=== PATIENT | male | born 1975 | race African-American/Black ===

== ENCOUNTER 2020-01-12 11:53 | Inpatient (IN) | payer MEDICAID ==
[~2020-01-12] VITALS: Ht 190.5 cm; Wt 123.3 kg
[~2020-01-12 11:53] MED LIST: ALBU6.7H IH; HYDR-1475 PO
[2020-01-12] MEDS ORDERED: HALOPERIDOL 5 MG TABLET PO PRN (13:00)
[2020-01-12] MEDS ORDERED: ZOLPIDEM TARTRATE 10 MG TABLET PO PRN (13:00)
[2020-01-12 16:50] VITALS: BP 131/86
[2020-01-12 17:21] LABS: GLUCOMETER DEV NAME(LOC) BV2S.; GLUCOSE,POINT OF CARE 227 MG/DL (70-110)
[2020-01-12] MEDS ORDERED: GLUCAGON,HUMAN RECOMBINANT 1 MG VIAL IM PRN (17:45)
[2020-01-12] MEDS: INSULIN LISPRO 100 UNITS/ML SQ PRN ×2 (17:54→21:09)
[2020-01-12] MEDS: INSULIN GLARGINE,HUM.REC.ANLOG 100 UNITS/ML SQ SCH (21:10)
[2020-01-12 22:05] LABS: GLUCOMETER DEV NAME(LOC) BV2S.; GLUCOSE,POINT OF CARE 216 MG/DL (70-110)
[2020-01-13 02:08] VITALS: BP 117/74
[2020-01-13 06:10] LABS: GLUCOMETER DEV NAME(LOC) BV2S.; GLUCOSE,POINT OF CARE 190 MG/DL (70-110)
[2020-01-13] MEDS: INSULIN LISPRO 100 UNITS/ML SQ PRN ×4 (06:40→20:23)
[2020-01-13 08:18] VITALS: BP 117/83
[2020-01-13] MEDS: ATORVASTATIN CALCIUM 40 MG TABLET PO SCH (09:00)
[2020-01-13] MEDS: HYDROCHLOROTHIAZIDE 25 MG TABLET PO SCH (09:00)
[2020-01-13] MEDS: NICOTINE 14 MG/24 HOUR PATCH TD SCH (09:00)
[2020-01-13] MEDS: TraMADol HCL 50 MG TABLET PO SCH ×2 (09:00→16:23)
[2020-01-13] MEDS ORDERED: ONDANSETRON HCL 4 MG TABLET PO PRN (09:30)
[2020-01-13] MEDS ORDERED: DOCUSATE SODIUM 100 MG CAPSULE PO PRN (09:30)
[2020-01-13] MEDS ORDERED: ALBUTEROL SULFATE HFA 90 MCG/PUFF 8 GM INHALER IH PRN (09:30)
[2020-01-13] MEDS ORDERED: CloNIDine HCL 0.1 MG TABLET PO PRN (09:30)
[2020-01-13] MEDS ORDERED: MAGNESIUM HYDROXIDE SUSPENSION 30 ML UDCUP PO PRN (09:30)
[2020-01-13] MEDS ORDERED: GuaiFENesin/D-METHORPHAN [SUGAR-FREE] 200-20MG/10 ML SYRUP UDCUP PO PRN (09:30)
[2020-01-13] MEDS ORDERED: ACETAMINOPHEN 325 MG TABLET PO PRN (09:30)
[2020-01-13] MEDS ORDERED: PETROLATUM,WHITE 28 GM JELLY TP PRN (09:30)
[2020-01-13] MEDS ORDERED: MAG HYDROX/AL HYDROX/SIMETH ES 30 ML SUSPENSION UDCUP PO PRN (09:30)
[2020-01-13] MEDS ORDERED: LOPERAMIDE HCL 2 MG CAPSULE PO PRN (09:30)
[2020-01-13] MEDS ORDERED: NICOTINE 14 MG/24 HOUR PATCH TD PRN (09:30)
[2020-01-13] MEDS: BuPROPion HCL XL 150 MG ER TABLET PO SCH (11:16)
[2020-01-13 16:07] LABS: GLUCOMETER DEV NAME(LOC) BV2S.; GLUCOSE,POINT OF CARE 211 MG/DL (70-110)
[2020-01-13] MEDS: ZIPRASIDONE HCL 20 MG CAPSULE PO SCH (16:23)
[2020-01-13 16:37] VITALS: BP 123/90
[2020-01-13 16:58] LABS: GLUCOMETER DEV NAME(LOC) BV2S.; GLUCOSE,POINT OF CARE 202 MG/DL (70-110)
[2020-01-13] MEDS: INSULIN GLARGINE,HUM.REC.ANLOG 100 UNITS/ML SQ SCH (20:20)
[2020-01-13 22:49] LABS: GLUCOMETER DEV NAME(LOC) BV2S.; GLUCOSE,POINT OF CARE 278 MG/DL (70-110)
[2020-01-14 00:43] VITALS: BP 125/75
[2020-01-14 06:17] LABS: GLUCOMETER DEV NAME(LOC) BV2S.; GLUCOSE,POINT OF CARE 178 MG/DL (70-110)
[2020-01-14 06:45] VITALS: BP 122/79
[2020-01-14] MEDS: IBUPROFEN 400 MG TABLET PO PRN (06:50)
[2020-01-14] MEDS: ZIPRASIDONE HCL 20 MG CAPSULE PO SCH ×2 (06:54→17:56)
[2020-01-14] MEDS: INSULIN LISPRO 100 UNITS/ML SQ PRN ×4 (06:56→21:08)
[2020-01-14 08:07] LABS: BASOPHILS % (AUTO) 0.5 % (0.0-2.0); EOSINOPHILS % (AUTO) 2.9 % (1.0-6.0); HEMATOCRIT 42.8 % (41-53); LYMPHOCYTES # (AUTO) 2.6 K/uL (1.0-4.8); LYMPHOCYTES % (AUTO) 39.7 % (22.0-44.0); MEAN CORPUSCULAR HEMOGLOBIN 27.1 pg (26.0-34.0); MEAN CORPUSCULAR HGB CONC 32.7 G/dL (31.0-37.0); MEAN CORPUSCULAR VOLUME 83 fL (80-100); MONOCYTES # (AUTO) 0.7 K/uL (0.1-1.0); MONOCYTES % (AUTO) 10.4 % (2.0-9.0); NEUTROPHILS % (AUTO) 46.5 % (40.0-70.0); PLATELET COUNT (AUTO) 270 K/uL (150-450); RED BLOOD CELL COUNT(AUTO) 5.17 MIL/uL (4.50-5.90); RED CELL DISTRIBUTION WIDTH 13.7 % (11.5-14.5)
[2020-01-14 08:17] VITALS: BP 108/64
[2020-01-14 08:36] LABS: ALANINE AMINOTRANSFERASE 62 U/L (12-78); ALBUMIN 3.4 g/dL (3.4-5.0); ALKALINE PHOSPHATASE 89 U/L (46-116); ANION GAP 8 mmol/L (8-16); ASPARTATE AMINOTRANSFERASE 19 U/L (15-37); BILIRUBIN,TOTAL 0.3 mg/dL (0.1-1.0); CALCIUM, TOTAL 9.4 mg/dL (8.8-10.5); CARBON DIOXIDE 29 mmol/L (22-29); CHLORIDE 100 mmol/L (98-107); CHOLESTEROL 263 mg/dL (131-200); CREATININE 0.96 mg/dL (0.60-1.30); FREE T4 (FREE THYROXINE) 0.78 ng/dL (0.76-1.46); GLOMERULAR FILTR. RATE CALC > 60 mL/min (>60); GLUCOSE,RANDOM 186 mg/dL (70-110); HDL CHOLESTEROL 44 mg/dL (40-60); LDL CHOL (CALC.) 184 mg/dL (0-130); POTASSIUM 4.1 mmol/L (3.5-5.1); SODIUM SERUM 137 mmol/L (136-145); THYROID STIMULATING HORMONE 0.88 uIU/mL (0.36-3.74); TOTAL PROTEIN, SERUM 7.1 g/dL (6.4-8.2); TRIGLYCERIDES 177 mg/dL (15-150); UREA NITROGEN, BLOOD 10 mg/dL (7-18)
[2020-01-14] MEDS: NICOTINE 14 MG/24 HOUR PATCH TD SCH (09:00)
[2020-01-14] MEDS: BuPROPion HCL XL 150 MG ER TABLET PO SCH (09:00)
[2020-01-14] MEDS: ATORVASTATIN CALCIUM 40 MG TABLET PO SCH (09:00)
[2020-01-14] MEDS: HYDROCHLOROTHIAZIDE 25 MG TABLET PO SCH (09:00)
[2020-01-14] MEDS: TraMADol HCL 50 MG TABLET PO SCH ×2 (10:41→17:56)
[2020-01-14 11:48] LABS: GLUCOMETER DEV NAME(LOC) BV2S.; GLUCOSE,POINT OF CARE 223 MG/DL (70-110)
[2020-01-14 16:58] LABS: GLUCOMETER DEV NAME(LOC) BV2S.; GLUCOSE,POINT OF CARE 159 MG/DL (70-110)
[2020-01-14 17:15] VITALS: BP 110/70
[2020-01-14 20:06] LABS: GLUCOMETER DEV NAME(LOC) BV2S.; GLUCOSE,POINT OF CARE 216 MG/DL (70-110)
[2020-01-14] MEDS: INSULIN GLARGINE,HUM.REC.ANLOG 100 UNITS/ML SQ SCH (21:08)
[2020-01-15 01:09] VITALS: BP 127/79
[2020-01-15] MEDS: ZIPRASIDONE HCL 20 MG CAPSULE PO SCH ×2 (06:01→16:09)
[2020-01-15] MEDS: IBUPROFEN 400 MG TABLET PO PRN (06:01)
[2020-01-15 06:07] LABS: GLUCOMETER DEV NAME(LOC) BV2S.; GLUCOSE,POINT OF CARE 170 MG/DL (70-110)
[2020-01-15] MEDS: INSULIN LISPRO 100 UNITS/ML SQ PRN ×4 (06:18→20:53)
[2020-01-15 08:52] VITALS: BP 110/63
[2020-01-15] MEDS: TraMADol HCL 50 MG TABLET PO SCH ×2 (09:14→16:09)
[2020-01-15] MEDS: BuPROPion HCL XL 150 MG ER TABLET PO SCH (09:14)
[2020-01-15] MEDS: ATORVASTATIN CALCIUM 40 MG TABLET PO SCH (09:14)
[2020-01-15] MEDS: NICOTINE 14 MG/24 HOUR PATCH TD SCH (09:14)
[2020-01-15] MEDS: HYDROCHLOROTHIAZIDE 25 MG TABLET PO SCH (09:14)
[2020-01-15 11:32] LABS: GLUCOMETER DEV NAME(LOC) BV2S.; GLUCOSE,POINT OF CARE 201 MG/DL (70-110)
[2020-01-15 16:15] VITALS: BP 132/83
[2020-01-15 17:32] LABS: GLUCOMETER DEV NAME(LOC) BV2S.; GLUCOSE,POINT OF CARE 217 MG/DL (70-110)
[2020-01-15] MEDS: INSULIN GLARGINE,HUM.REC.ANLOG 100 UNITS/ML SQ SCH (20:53)
[2020-01-15 21:26] LABS: GLUCOMETER DEV NAME(LOC) BV2S.; GLUCOSE,POINT OF CARE 330 MG/DL (70-110)
[2020-01-16 05:43] VITALS: BP 128/83
[2020-01-16 06:22] LABS: GLUCOMETER DEV NAME(LOC) BV2S.; GLUCOSE,POINT OF CARE 179 MG/DL (70-110)
[2020-01-16] MEDS: ZIPRASIDONE HCL 20 MG CAPSULE PO SCH ×2 (06:53→16:29)
[2020-01-16] MEDS: INSULIN LISPRO 100 UNITS/ML SQ PRN ×4 (06:54→20:18)
[2020-01-16 08:45] VITALS: BP 126/67
[2020-01-16] MEDS: BuPROPion HCL XL 150 MG ER TABLET PO SCH (08:47)
[2020-01-16] MEDS: HYDROCHLOROTHIAZIDE 25 MG TABLET PO SCH (08:47)
[2020-01-16] MEDS: TraMADol HCL 50 MG TABLET PO SCH ×2 (08:47→16:29)
[2020-01-16] MEDS: ATORVASTATIN CALCIUM 40 MG TABLET PO SCH (08:47)
[2020-01-16] MEDS: NICOTINE 14 MG/24 HOUR PATCH TD SCH (08:48)
[2020-01-16 13:46] LABS: GLUCOMETER DEV NAME(LOC) BV2S.; GLUCOSE,POINT OF CARE 279 MG/DL (70-110)
[2020-01-16 16:25] VITALS: BP 129/76
[2020-01-16 17:06] LABS: GLUCOMETER DEV NAME(LOC) BV2S.; GLUCOSE,POINT OF CARE 277 MG/DL (70-110)
[2020-01-16] MEDS: INSULIN GLARGINE,HUM.REC.ANLOG 100 UNITS/ML SQ SCH (20:18)
[2020-01-16 22:15] LABS: GLUCOMETER DEV NAME(LOC) BV2S.; GLUCOSE,POINT OF CARE 215 MG/DL (70-110)
[2020-01-17 02:12] VITALS: BP 138/88
[2020-01-17 06:15] LABS: GLUCOMETER DEV NAME(LOC) BV2S.; GLUCOSE,POINT OF CARE 160 MG/DL (70-110)
[2020-01-17] MEDS: INSULIN LISPRO 100 UNITS/ML SQ PRN ×4 (06:51→20:34)
[2020-01-17] MEDS: ZIPRASIDONE HCL 20 MG CAPSULE PO SCH ×2 (06:51→16:19)
[2020-01-17 09:50] VITALS: BP 116/64
[2020-01-17] MEDS: BuPROPion HCL XL 150 MG ER TABLET PO SCH (09:50)
[2020-01-17] MEDS: HYDROCHLOROTHIAZIDE 25 MG TABLET PO SCH (09:50)
[2020-01-17] MEDS: ATORVASTATIN CALCIUM 40 MG TABLET PO SCH (09:50)
[2020-01-17] MEDS: TraMADol HCL 50 MG TABLET PO SCH ×2 (09:50→16:20)
[2020-01-17] MEDS: NICOTINE 14 MG/24 HOUR PATCH TD SCH (09:51)
[2020-01-17 11:49] LABS: GLUCOMETER DEV NAME(LOC) BV2S.; GLUCOSE,POINT OF CARE 256 MG/DL (70-110)
[2020-01-17 16:14] VITALS: BP 106/60
[2020-01-17 17:34] LABS: GLUCOMETER DEV NAME(LOC) BV2S.; GLUCOSE,POINT OF CARE 204 MG/DL (70-110)
[2020-01-17 20:33] LABS: GLUCOMETER DEV NAME(LOC) BV2S.; GLUCOSE,POINT OF CARE 222 MG/DL (70-110)
[2020-01-17] MEDS: INSULIN GLARGINE,HUM.REC.ANLOG 100 UNITS/ML SQ SCH (20:34)
[2020-01-18 04:52] VITALS: BP 109/68
[2020-01-18 06:05] LABS: GLUCOMETER DEV NAME(LOC) BV2S.; GLUCOSE,POINT OF CARE 174 MG/DL (70-110)
[2020-01-18] MEDS: ZIPRASIDONE HCL 20 MG CAPSULE PO SCH ×2 (06:37→16:17)
[2020-01-18] MEDS: INSULIN LISPRO 100 UNITS/ML SQ PRN ×4 (06:38→20:11)
[2020-01-18] MEDS: TraMADol HCL 50 MG TABLET PO SCH ×2 (08:51→16:18)
[2020-01-18] MEDS: HYDROCHLOROTHIAZIDE 25 MG TABLET PO SCH (08:52)
[2020-01-18] MEDS: BuPROPion HCL XL 150 MG ER TABLET PO SCH (08:52)
[2020-01-18] MEDS: NICOTINE 14 MG/24 HOUR PATCH TD SCH (08:52)
[2020-01-18] MEDS: ATORVASTATIN CALCIUM 40 MG TABLET PO SCH (08:52)
[2020-01-18 11:43] LABS: GLUCOMETER DEV NAME(LOC) BV2S.; GLUCOSE,POINT OF CARE 167 MG/DL (70-110)
[2020-01-18 16:23] VITALS: BP 123/67
[2020-01-18 16:38] LABS: GLUCOMETER DEV NAME(LOC) BV2S.; GLUCOSE,POINT OF CARE 301 MG/DL (70-110)
[2020-01-18] MEDS: INSULIN GLARGINE,HUM.REC.ANLOG 100 UNITS/ML SQ SCH (20:10)
[2020-01-18] MEDS: LORazepam 2 MG TABLET PO PRN (20:48)
[2020-01-18 21:03] LABS: GLUCOMETER DEV NAME(LOC) BV2S.; GLUCOSE,POINT OF CARE 276 MG/DL (70-110)
[2020-01-19 01:16] VITALS: BP 122/61
[2020-01-19 06:21] LABS: GLUCOMETER DEV NAME(LOC) BV2S.; GLUCOSE,POINT OF CARE 163 MG/DL (70-110)
[2020-01-19] MEDS: ZIPRASIDONE HCL 20 MG CAPSULE PO SCH ×2 (06:45→16:06)
[2020-01-19] MEDS: INSULIN LISPRO 100 UNITS/ML SQ PRN ×4 (06:45→21:55)
[2020-01-19] MEDS: OMEGA-3/DHA/EPA/FISH OIL 1,000 MG CAPSULE PO SCH (08:57)
[2020-01-19] MEDS: HYDROCHLOROTHIAZIDE 25 MG TABLET PO SCH (08:57)
[2020-01-19] MEDS: NICOTINE 14 MG/24 HOUR PATCH TD SCH (08:57)
[2020-01-19] MEDS: BuPROPion HCL XL 150 MG ER TABLET PO SCH (08:58)
[2020-01-19] MEDS: TraMADol HCL 50 MG TABLET PO SCH ×2 (08:58→16:06)
[2020-01-19] MEDS: ATORVASTATIN CALCIUM 40 MG TABLET PO SCH (08:59)
[2020-01-19 09:06] VITALS: BP 127/85
[2020-01-19 11:41] LABS: GLUCOMETER DEV NAME(LOC) BV2S.; GLUCOSE,POINT OF CARE 235 MG/DL (70-110)
[2020-01-19] MEDS: LORazepam 2 MG TABLET PO PRN ×2 (16:23→20:32)
[2020-01-19 16:24] LABS: GLUCOMETER DEV NAME(LOC) BV2S.; GLUCOSE,POINT OF CARE 243 MG/DL (70-110)
[2020-01-19 16:34] VITALS: BP 142/72
[2020-01-19 20:12] LABS: GLUCOMETER DEV NAME(LOC) BV2S.; GLUCOSE,POINT OF CARE 273 MG/DL (70-110)
[2020-01-19] MEDS: INSULIN GLARGINE,HUM.REC.ANLOG 100 UNITS/ML SQ SCH (21:55)
[2020-01-20 05:44] LABS: GLUCOMETER DEV NAME(LOC) BV2S.; GLUCOSE,POINT OF CARE 190 MG/DL (70-110)
[2020-01-20 06:09] VITALS: BP 112/73
[2020-01-20] MEDS: ZIPRASIDONE HCL 20 MG CAPSULE PO SCH (06:45)
[2020-01-20] MEDS: INSULIN LISPRO 100 UNITS/ML SQ PRN ×2 (06:46→10:57)
[2020-01-20 07:56] LABS: APPEARANCE,URINE CLEAR (CLEAR); BILIRUBIN,URINE NEGATIVE (NEGATIVE); GLUCOSE, URINE (UA) NEGATIVE (NEGATIVE); KETONES,URINE NEGATIVE (NEGATIVE); LEUKOCYTE ESTERASE ,URINE NEGATIVE (NEGATIVE); NITRATE,URINE NEGATIVE (NEGATIVE); OCCULT BLOOD,URINE NEGATIVE (NEGATIVE); PH,URINE 5.5 (5.0-8.0); PROTEIN,URINE NEGATIVE (NEGATIVE); UROBILINOGEN,URINE 0.2 mg/dL (<=1.0)
[2020-01-20 07:58] LABS: AMPHET/METH SCREEN,URINE NEGATIVE (NEGATIVE); BARBITURATE SCREEN, URINE NEGATIVE (NEGATIVE); BENZODIAZEPINES SCREEN,URINE NEGATIVE (NEGATIVE); CANNABINOID SCREEN,URINE NEGATIVE (NEGATIVE); COCAINE SCREEN,URINE NEGATIVE (NEGATIVE); METHADONE SCREEN, URINE NEGATIVE (NEGATIVE); OPIATE SCREEN,URINE NEGATIVE (NEGATIVE)
[2020-01-20 07:59] LABS: PHENCYCLIDINE SCREEN,URINE NEGATIVE (NEGATIVE)
[2020-01-20 08:19] VITALS: BP 137/68
[2020-01-20] MEDS: TraMADol HCL 50 MG TABLET PO SCH (08:24)
[2020-01-20] MEDS: OMEGA-3/DHA/EPA/FISH OIL 1,000 MG CAPSULE PO SCH (08:24)
[2020-01-20] MEDS: BuPROPion HCL XL 150 MG ER TABLET PO SCH (08:24)
[2020-01-20] MEDS: ATORVASTATIN CALCIUM 40 MG TABLET PO SCH (08:24)
[2020-01-20] MEDS: HYDROCHLOROTHIAZIDE 25 MG TABLET PO SCH (08:24)
[2020-01-20] MEDS: NICOTINE 14 MG/24 HOUR PATCH TD SCH (08:25)
[2020-01-20] MEDS ORDERED: BUPR-47 PO (10:58)
[2020-01-20] MEDS ORDERED: ZIPR20CA2 PO (10:58)
[2020-01-20 10:59] LABS: GLUCOMETER DEV NAME(LOC) BV2S.; GLUCOSE,POINT OF CARE 234 MG/DL (70-110)
[2020-01-20] MEDS ORDERED: TRAM50TA4 PO (11:02)
[2020-01-20] MEDS ORDERED: INSLAN SQ (11:02)
[2020-01-20] MEDS ORDERED: OMEG-135 PO (11:02)
[2020-01-20] MEDS ORDERED: ATOR40TA28 PO (11:02)
== END 2020-01-20 13:10 | disposition home or self-care (01) | DRG 750 ==
LOC: B2S 15:48
DX: F25.1 Schizoaffective disorder, depressive type (principal); E11.9 Type 2 diabetes mellitus without complications; E66.9 Obesity, unspecified; E78.00 Pure hypercholesterolemia, unspecified; E78.5 Hyperlipidemia, unspecified; F10.10 Alcohol abuse, uncomplicated; F12.10 Cannabis abuse, uncomplicated; F15.10 Other stimulant abuse, uncomplicated; G89.29 Other chronic pain; I10 Essential (primary) hypertension; J45.909 Unspecified asthma, uncomplicated; R45.851 Suicidal ideations; M54.9 Dorsalgia, unspecified; Z59.0 Homelessness; Z79.899 Other long term (current) drug therapy; Z91.5 Personal history of self-harm; Z79.51 Long term (current) use of inhaled steroids; Z68.34 Body mass index [BMI] 34.0-34.9, adult
CPT/HCPCS: 80307; 83036; 84436; 84439; 84443; 87081; J1815

== ENCOUNTER 2021-07-27 01:22 | Inpatient (IN) | payer MEDICAID ==
[~2021-07-27] VITALS: Ht 193 cm; Wt 124.9 kg
[~2021-07-27 01:22] MED LIST changes: -ALBU6.7H IH; +ATOR40TA28 PO; +BUPR-49 PO; -HYDR-1475 PO; +HYDR25TA2 PO; +INSLAN SQ; +OMEG-108 PO; +TRAM50TA4 PO; +ZIPR20CA2 PO
[2021-07-27] MEDS ORDERED: ZOLPIDEM TARTRATE 10 MG TABLET PO PRN (07:45)
[2021-07-27 08:19] VITALS: BP 101/59
[2021-07-27 08:30] VITALS: BP 143/86
[2021-07-27] MEDS ORDERED: INSLAN SQ (10:23)
[2021-07-27] MEDS ORDERED: SERT-158 PO (10:23)
[2021-07-27] MEDS ORDERED: LITH300T PO (10:23)
[2021-07-27] MEDS ORDERED: BUPR-345 PO (10:23)
[2021-07-27] MEDS ORDERED: INSREG SQ (10:25)
[2021-07-27] MEDS: NICOTINE 21 MG/24 HOUR PATCH TD SCH (15:21)
[2021-07-27] MEDS: LORazepam 2 MG TABLET PO PRN (16:42)
[2021-07-27] MEDS: HALOPERIDOL 5 MG TABLET PO PRN (16:42)
[2021-07-27] MEDS: ZIPRASIDONE HCL 80 MG CAPSULE PO SCH (17:40)
[2021-07-27 19:13] VITALS: BP 161/84
[2021-07-27] MEDS ORDERED: ONDANSETRON HCL 4 MG TABLET PO PRN (20:00)
[2021-07-27] MEDS ORDERED: ACETAMINOPHEN 325 MG TABLET PO PRN (20:00)
[2021-07-27] MEDS ORDERED: IBUPROFEN 600 MG TABLET PO PRN (20:00)
[2021-07-27] MEDS ORDERED: DOCUSATE SODIUM 100 MG CAPSULE PO PRN (20:00)
[2021-07-27] MEDS ORDERED: GLUCAGON,HUMAN RECOMBINANT 1 MG VIAL IM PRN (20:00)
[2021-07-27] MEDS ORDERED: MAGNESIUM HYDROXIDE SUSPENSION 30 ML UDCUP PO PRN (20:00)
[2021-07-27] MEDS ORDERED: LOPERAMIDE HCL 2 MG CAPSULE PO PRN (20:00)
[2021-07-27] MEDS ORDERED: ALBUTEROL SULFATE HFA 90 MCG/PUFF 8 GM INHALER IH PRN (20:00)
[2021-07-27] MEDS ORDERED: BACITRACIN 28 GM OINTMENT TP PRN (20:00)
[2021-07-27] MEDS ORDERED: OMEPRAZOLE 20 MG CAPSULE PO PRN (20:00)
[2021-07-27] MEDS ORDERED: CloNIDine HCL 0.1 MG TABLET PO PRN (20:00)
[2021-07-27] MEDS ORDERED: PETROLATUM,WHITE 28 GM JELLY TP PRN (20:00)
[2021-07-27] MEDS ORDERED: BENZOCAINE/MENTHOL LOZENGE PO PRN (20:00)
[2021-07-27] MEDS ORDERED: MAG HYDROX/AL HYDROX/SIMETH ES 30 ML SUSPENSION UDCUP PO PRN (20:00)
[2021-07-27] MEDS ORDERED: INSULIN GLARGINE,HUM.REC.ANLOG 100 UNITS/ML SQ SCH (21:00)
[2021-07-27] MEDS: INSULIN LISPRO 100 UNITS/ML SQ PRN (21:22)
[2021-07-27 21:36] LABS: GLUCOMETER DEV NAME(LOC) BV3N.; GLUCOSE,POINT OF CARE 158 MG/DL (70-110)
[2021-07-28 05:21] VITALS: BP 135/84
[2021-07-28] MEDS: ZIPRASIDONE HCL 80 MG CAPSULE PO SCH ×2 (06:26→16:44)
[2021-07-28 06:31] LABS: GLUCOMETER DEV NAME(LOC) BV3N.; GLUCOSE,POINT OF CARE 153 MG/DL (70-110)
[2021-07-28] MEDS: INSULIN LISPRO 100 UNITS/ML SQ PRN ×4 (06:36→20:23)
[2021-07-28] MEDS: HYDROCHLOROTHIAZIDE 25 MG TABLET PO SCH (08:05)
[2021-07-28] MEDS: ATORVASTATIN CALCIUM 40 MG TABLET PO SCH (08:05)
[2021-07-28] MEDS: NICOTINE 21 MG/24 HOUR PATCH TD SCH (08:05)
[2021-07-28] MEDS: OMEGA-3/DHA/EPA/FISH OIL 1,000 MG CAPSULE PO SCH (08:05)
[2021-07-28] MEDS: HALOPERIDOL 5 MG TABLET PO PRN (08:06)
[2021-07-28] MEDS: LORazepam 2 MG TABLET PO PRN (08:06)
[2021-07-28 08:08] VITALS: BP 161/89
[2021-07-28 11:26] LABS: GLUCOMETER DEV NAME(LOC) BV3N.; GLUCOSE,POINT OF CARE 238 MG/DL (70-110)
[2021-07-28 16:09] VITALS: BP 155/92
[2021-07-28 16:31] LABS: GLUCOMETER DEV NAME(LOC) BV3N.; GLUCOSE,POINT OF CARE 154 MG/DL (70-110)
[2021-07-28] MEDS: INSULIN GLARGINE,HUM.REC.ANLOG 100 UNITS/ML SQ SCH ×2 (20:23→20:26)
[2021-07-28 20:26] LABS: GLUCOMETER DEV NAME(LOC) BV3N.; GLUCOSE,POINT OF CARE 185 MG/DL (70-110)
[2021-07-29 04:26] VITALS: BP 151/93
[2021-07-29] MEDS: ZIPRASIDONE HCL 80 MG CAPSULE PO SCH ×2 (06:44→17:15)
[2021-07-29 06:47] LABS: GLUCOMETER DEV NAME(LOC) BV3N.; GLUCOSE,POINT OF CARE 215 MG/DL (70-110)
[2021-07-29] MEDS: INSULIN LISPRO 100 UNITS/ML SQ PRN ×4 (06:57→21:00)
[2021-07-29 08:11] VITALS: BP 145/68
[2021-07-29] MEDS: NICOTINE 21 MG/24 HOUR PATCH TD SCH (08:54)
[2021-07-29] MEDS: ATORVASTATIN CALCIUM 40 MG TABLET PO SCH (08:54)
[2021-07-29] MEDS: OMEGA-3/DHA/EPA/FISH OIL 1,000 MG CAPSULE PO SCH (08:54)
[2021-07-29] MEDS: HYDROCHLOROTHIAZIDE 25 MG TABLET PO SCH (08:54)
[2021-07-29] MEDS: HALOPERIDOL 5 MG TABLET PO PRN ×2 (08:55→17:15)
[2021-07-29] MEDS: LORazepam 2 MG TABLET PO PRN ×2 (08:55→17:15)
[2021-07-29 12:31] LABS: GLUCOMETER DEV NAME(LOC) BV3N.; GLUCOSE,POINT OF CARE 195 MG/DL (70-110)
[2021-07-29 16:08] VITALS: BP 128/70
[2021-07-29 17:56] LABS: GLUCOMETER DEV NAME(LOC) BV3N.; GLUCOSE,POINT OF CARE 272 MG/DL (70-110)
[2021-07-29] MEDS: INSULIN GLARGINE,HUM.REC.ANLOG 100 UNITS/ML SQ SCH (21:00)
[2021-07-29 21:16] LABS: GLUCOMETER DEV NAME(LOC) BV3N.; GLUCOSE,POINT OF CARE 187 MG/DL (70-110)
[2021-07-30 04:42] VITALS: BP 126/68
[2021-07-30] MEDS: ZIPRASIDONE HCL 80 MG CAPSULE PO SCH ×2 (06:26→16:52)
[2021-07-30 06:41] LABS: GLUCOMETER DEV NAME(LOC) BV3N.; GLUCOSE,POINT OF CARE 143 MG/DL (70-110)
[2021-07-30] MEDS: INSULIN LISPRO 100 UNITS/ML SQ PRN ×4 (06:43→21:14)
[2021-07-30 08:28] VITALS: BP 124/78
[2021-07-30] MEDS: NICOTINE 21 MG/24 HOUR PATCH TD SCH (08:30)
[2021-07-30] MEDS: OMEGA-3/DHA/EPA/FISH OIL 1,000 MG CAPSULE PO SCH (08:30)
[2021-07-30] MEDS: HYDROCHLOROTHIAZIDE 25 MG TABLET PO SCH (08:30)
[2021-07-30] MEDS: ATORVASTATIN CALCIUM 40 MG TABLET PO SCH (08:30)
[2021-07-30 11:31] LABS: GLUCOMETER DEV NAME(LOC) BV3N.; GLUCOSE,POINT OF CARE 242 MG/DL (70-110)
[2021-07-30 16:14] VITALS: BP 133/82
[2021-07-30] MEDS: LORazepam 2 MG TABLET PO PRN (16:52)
[2021-07-30 17:41] LABS: GLUCOMETER DEV NAME(LOC) BV3N.; GLUCOSE,POINT OF CARE 200 MG/DL (70-110)
[2021-07-30] MEDS: INSULIN GLARGINE,HUM.REC.ANLOG 100 UNITS/ML SQ SCH (21:14)
[2021-07-30 21:27] LABS: GLUCOMETER DEV NAME(LOC) BV3N.; GLUCOSE,POINT OF CARE 203 MG/DL (70-110)
[2021-07-31] MEDS: ZIPRASIDONE HCL 80 MG CAPSULE PO SCH (06:33)
[2021-07-31 06:46] LABS: GLUCOMETER DEV NAME(LOC) BV3N.; GLUCOSE,POINT OF CARE 115 MG/DL (70-110)
[2021-07-31 08:21] VITALS: BP 133/80
[2021-07-31] MEDS: NICOTINE 21 MG/24 HOUR PATCH TD SCH (08:54)
[2021-07-31] MEDS: ATORVASTATIN CALCIUM 40 MG TABLET PO SCH (09:00)
[2021-07-31] MEDS: HYDROCHLOROTHIAZIDE 25 MG TABLET PO SCH (09:00)
[2021-07-31] MEDS: OMEGA-3/DHA/EPA/FISH OIL 1,000 MG CAPSULE PO SCH (09:00)
[2021-07-31] MEDS ORDERED: ZIPR80CA2 PO (14:27)
== END 2021-07-31 15:26 | disposition home or self-care (01) | DRG 750 ==
LOC: B3A 07:15
PROVIDERS: ADMIT Psychiatry & Neurology Psychiatry; ATTEND Psychiatry & Neurology Psychiatry
DX: F25.9 Schizoaffective disorder, unspecified (principal); E11.9 Type 2 diabetes mellitus without complications; E78.5 Hyperlipidemia, unspecified; F17.200 Nicotine dependence, unspecified, uncomplicated; F41.9 Anxiety disorder, unspecified; Z20.822 Contact with and (suspected) exposure to COVID-19; I10 Essential (primary) hypertension; Z56.0 Unemployment, unspecified; Z79.4 Long term (current) use of insulin
CPT/HCPCS: 82962; 87081; J1815